=== PATIENT | male | born 1985 | race Caucasian/White ===

== ENCOUNTER 2017-02-10 14:06 | Emergency (ER) | payer BC, OTHER ==
[2017-02-10] MEDS ORDERED: DIPHENHYDRAMINE HCL 50 MG/ML VIAL IV ONE (14:42)
[2017-02-10] MEDS ORDERED: METHYLPREDNISOLONE INJ 125 MG/2 ML SDV IV ONE (14:42)
[2017-02-10] MEDS ORDERED: PROCHLORPERAZINE EDISYLATE INJ 10 MG/2 ML VIAL IV ONE (14:42)
[2017-02-10] MEDS ORDERED: KETOROLAC TROMETHAMINE INJ/PF 30 MG/1 ML SDV IV ONE (14:43)
[2017-02-10] MEDS ORDERED: NORMAL SALINE 500 ML IV ONE (14:43)
--- NOTE | 2017-02-10 14:46 | ER Document Report ---
ED Headache - General Chief Complaint: Headache >24 hrs old Stated Complaint: HEADACHE Time Seen by Provider: 02/10/17 14:29 Information source: Patient - HPI Patient complains to provider of: "Migraine" Notes: 32-year-old male with long history of migraines presents with headache typical of his migraines. Located in the right frontal region and deep to his right eye throbbing in nature and severe. He has now had it for a few days. Despite his prophylactic amitriptyline and his Fioricet which he took last night and today he has had no improvement. It became intolerable at work and he "freaked out". Characteristics are the same but it is more intense than usual. He states it is not the most severe headache of his life. He has had prior imaging. Denies any new neurologic symptoms focal weakness numbness or tingling. No vision change or vision loss. Denies speech or swallowing difficulty. Associated symptoms such as fever, sinus symptoms, or cold symptoms. - Related Data Allergies/Adverse Reactions: No Known Allergies Allergy (Unverified 02/10/17 14:19) Past Medical History - Social History Smoking Status: Never Smoker Family History: Reviewed & Not Pertinent Neurological Medical History: Reports: Hx Migraine Past Surgical History: Reports: Hx Myringotomy Physical Exam - Vital signs Vitals: Temp Pulse Resp BP Pulse Ox 98.2 F 89 17 150/88 H 98 02/10/17 14:11 02/10/17 14:11 02/10/17 14:11 02/10/17 14:11 02/10/17 14:11 Interpretation: Normal, Hypertensive - Discussed with patient for follow-up - Notes Notes: GENERAL: VS as per nursing doc. Well-appearing, well-nourished and in no acute distress but does appear uncomfortable. HEAD: Atraumatic, normocephalic. No temporal artery tenderness or nodularity. Nontender otherwise. EYES: Pupils equal round and reactive to light, extraocular movements intact, sclera anicteric, no conjunctival injection or discharge. He is notably photophobic ENT: Nares patent, oropharynx clear without exudates. Moist mucous membranes. NECK: Normal range of motion, supple, no carotid bruits. LUNGS: Breath sounds clear to auscultation bilaterally and equal. No wheezes rales or rhonchi. HEART: Normal S1S2. Regular rate and rhythm without murmurs. Equal peripheral pulses. ABDOMEN: Soft, non-tender. No appreciable mass. EXTREMITIES: Normal range of motion. No calf tenderness. Negative Homans. No edema. NEUROLOGICAL: GCS 15, Cranial nerves II-XII intact. Normal visual yanez. Normal speech without aphasia. No pronator drift. 5/5 RUE strength, 5/5 RLE strength, 5/5 LUE strength, 5/5 LLE strength. No cerebellar abnormalities including normal finger-nose testing. Negative Babinski, 2+= DTR refelexes. PSYCH: Slightly anxious. SKIN: Warm, Dry, no cyanosis, Cap refill < 2 sec. Course - Re-evaluation Re-evalutation: 02/10/17 15:44 Patient's headache is much improved. The states at this point she just wants to go home. He has medications at home and neurology follow-up. He does not want any headache workup. - Vital Signs Vital signs: Temp Pulse Resp BP Pulse Ox 98.2 F 89 17 150/88 H 98 02/10/17 14:11 02/10/17 14:11 02/10/17 14:11 02/10/17 14:11 02/10/17 14:11 Discharge - Discharge Clinical Impression: Headache Condition: Good Disposition: HOME, SELF-CARE Instructions: Headache ([facility]) Additional Instructions: Please return for worsening or concern. Keep your appointment with your neurologist. Forms: Parent Work Note, Elevated Blood Pressure
[2017-02-10 16:26] VITALS: BP 144/83
== END 2017-02-10 16:26 | disposition home or self-care (01) ==
LOC: ER 14:06
DX: R51 Headache (principal)
CPT/HCPCS: 99283; 96374; 96375; J1200; J2930; J1885; J0780; J7040